=== PATIENT | female | born 1970 | race Caucasian/White ===

== ENCOUNTER 2021-12-12 07:58 | Emergency (ER) | payer BC ==
--- NOTE | 2021-12-12 08:19 | ERPHSYRPT ---
- History of Present Illness Time Seen by Provider: 12/12/21 08:14 Historian: patient, family Exam Limitations: no limitations Physician History: pt has had intermittent RUQ pain over the past month but awakened with sharp pain and vomiting tonight and came to ER. Is scheduled for US tomorrow to evaluate but unable to wait due to increased severity tonight/this am. Prior uterine ablation procedure. No vag discharge or other vag symptoms. Abd tender at RLQ radiating to RUQ. . Timing/Duration: day(s), intermittent Activities at Onset: none Quality: sharpness Abdominal Pain Onset Location: RUQ Pain Radiation: RUQ Severity of Pain-Max: moderate Severity of Pain-Current: moderate Modifying Factors: Improves With: nothing Associated Symptoms: nausea, vomiting Previous symptoms: same symptoms as today, recently seen, recently treated Allergies/Adverse Reactions: No Known Drug Allergies Allergy (Verified 12/12/21 08:15) - Review of Systems Constitutional: No Fever, No Chills Eyes: No Symptoms Ears, Nose, & Throat: No Symptoms Respiratory: No Cough, No Dyspnea Cardiac: No Chest Pain, No Edema, No Syncope Abdominal/Gastrointestinal: Abdominal Pain, Nausea, Vomiting, No Diarrhea Genitourinary Symptoms: No Dysuria Musculoskeletal: No Back Pain, No Neck Pain Skin: No Rash Neurological: No Dizziness, No Focal Weakness, No Sensory Changes Psychological: No Symptoms Endocrine: No Symptoms Hematologic/Lymphatic: No Symptoms Immunological/Allergic: No Symptoms All Other Systems: Reviewed and Negative - Past Medical History Pertinent Past Medical History: Yes GI Medical History: Other (recent concerns for GB Dx) Female Reproductive Disorders: Other (uterine thermoablation procedure) - Nursing Vital Signs Nursing Vital Signs: Initial Vital Signs Temperature 98 F 12/12/21 08:16 Pulse Rate 62 12/12/21 08:16 Respiratory Rate 20 12/12/21 08:16 Blood Pressure 159/97 12/12/21 08:16 O2 Sat by Pulse Oximetry 99 12/12/21 08:16 Pain Scale Pain Intensity 0 - Physical Exam General Appearance: no apparent distress, alert Eye Exam: PERRL/EOMI, eyes nml inspection Ears, Nose, Throat Exam: normal ENT inspection, pharynx normal, moist mucous membranes Neck Exam: normal inspection, non-tender, supple, full range of motion Respiratory Exam: normal breath sounds, lungs clear, No respiratory distress Cardiovascular Exam: regular rate/rhythm, normal heart sounds Gastrointestinal/Abdomen Exam: soft, tenderness, guarding (RUQ/RLQ), No mass Pelvic Exam: deferred Rectal Exam: deferred Back Exam: normal inspection, normal range of motion, No CVA tenderness, No vertebral tenderness Extremity Exam: normal inspection, normal range of motion, pelvis stable Neurologic Exam: alert, oriented x 3, cooperative, normal mood/affect, nml cerebellar function, sensation nml, No motor deficits Skin Exam: normal color, warm, dry SpO2 Interpretation: normal O2 Delivery: Room Air - Course Nursing assessment & vital signs reviewed: Yes EKG Interpreted by Me: Sinus [place], NORMAL AXIS, NORMAL INTERVALS, NORMAL QRS, Other (APCs) - CT Exams Abdomen/Pelvis CT Interpretation: Tele-radiologist Report, Normal Appendix, No appendicitis, Other (distended GB but no visible stones or blockages, and no cholecystitis as yet. ) Ordered Tests: Active Orders 24 hr Category Date Time Status EKG-ER Only STAT Care 12/12/21 08:21 Active IV Insertion STAT Care 12/12/21 08:21 Active NPO (ED) STAT Care 12/12/21 08:21 Active ABDOMEN AND PELVIS W/0 CONTRAS [CT] Stat Exams 12/12/21 08:21 Taken AMYLASE Stat Lab 12/12/21 08:00 Completed CBC W DIFF Stat Lab 12/12/21 08:00 Completed CMP Stat Lab 12/12/21 08:00 Completed CULTURE,URINE Stat Lab 12/12/21 09:44 Received HCG QUALITATIVE,SERUM Stat Lab 12/12/21 08:00 Completed LIPASE Stat Lab 12/12/21 08:00 Completed Lactic Acid Stat Lab 12/12/21 09:50 Completed TROPONIN Q4H Lab 12/12/21 08:00 Completed TROPONIN Q4H Lab 12/12/21 12:30 Ordered TROPONIN Q4H Lab 12/12/21 16:30 Ordered UA W/RFX CULTURE Stat Lab 12/12/21 09:44 Completed Medication Summary Discontinued Medications Generic Name Dose Route Start Last Admin Trade Name Freq PRN Reason Stop Dose Admin Famotidine 20 mg 12/12/21 08:21 12/12/21 08:32 Famotidine 20 Mg/1 Vial IV 12/12/21 08:22 20 mg STAT ONE Administration Famotidine Confirm 12/12/21 08:27 Famotidine 20 Mg/1 Vial Administered 12/12/21 08:28 Dose 20 mg IV .STK-MED ONE Sodium Chloride 1,000 mls @ 999 mls/hr 12/12/21 08:21 12/12/21 10:02 Sodium Chloride 0.9% 1000 Ml IV 12/12/21 09:21 Infused .Q1H1M STA Infusion Sodium Chloride Confirm 12/12/21 08:27 Sodium Chloride 0.9% 1000 Ml Administered 12/12/21 08:28 Dose 1,000 mls @ ud .ROUTE .STK-MED ONE Morphine Sulfate 4 mg 12/12/21 08:21 12/12/21 08:35 Morphine Sulfate 4 Mg/Ml Injection IV 12/12/21 08:22 4 mg STAT ONE Administration Morphine Sulfate Confirm 12/12/21 08:27 Morphine Sulfate 4 Mg/Ml Injection Administered 12/12/21 08:28 Dose 4 mg .ROUTE .STK-MED ONE Ondansetron HCl 4 mg 12/12/21 08:21 12/12/21 08:31 Ondansetron Hcl 4 Mg/2 Ml Vial IV 12/12/21 08:22 4 mg STAT ONE Administration Ondansetron HCl Confirm 12/12/21 08:27 Ondansetron Hcl 4 Mg/2 Ml Vial Administered 12/12/21 08:28 Dose 4 mg .ROUTE .STK-MED ONE Ondansetron HCl 4 mg 12/12/21 09:01 12/12/21 09:08 Ondansetron Hcl 4 Mg/2 Ml Vial IV 12/12/21 09:02 4 mg STAT ONE Administration Ondansetron HCl Confirm 12/12/21 09:08 Ondansetron Hcl 4 Mg/2 Ml Vial Administered 12/12/21 09:09 Dose 4 mg .ROUTE .STK-MED ONE Pantoprazole Sodium 40 mg 12/12/21 08:21 12/12/21 08:34 Pantoprazole 40 Mg Vial IV 12/12/21 08:22 40 mg STAT ONE Administration Pantoprazole Sodium Confirm 12/12/21 08:27 Pantoprazole 40 Mg Vial Administered 12/12/21 08:28 Dose 40 mg IV .STK-MED ONE Lab/Rad Data: Laboratory Result Diagrams 12/12/21 08:00 12/12/21 08:00 Laboratory Results 12/12/21 12/12/21 12/12/21 Range/Units 09:50 09:44 08:00 WBC (4.0-10.5) x10^3/uL RBC (4.1-5.4) x10^6/uL Hgb (12.0-16.0) g/dL Hct (35-47) % MCV (78-100) fL MCH (26-32) pg MCHC (32-36) g/dL RDW (11.5-14.0) % Plt Count (150-450) x10^3/uL MPV (7.5-11.0) fL Gran % (36.0-66.0) % Immature Gran % (Auto) (0.00-0.4) % Nucleat RBC Rel Count (0.00-0.1) % Eos # (Auto) (0-0.5) x10^3/uL Immature Gran # (Auto) (0.00-0.03) x10^3u/L Absolute Lymphs (auto) (1.0-4.6) x10^3/uL Absolute Monos (auto) (0.0-1.3) x10^3/uL Absolute Nucleated RBC (0.00-0.01) x10^3u/L Lymphocytes % (24.0-44.0) % Monocytes % (0.0-12.0) % Eosinophils % (0.00-5.0) % Basophils % (0.0-0.4) % Absolute Granulocytes (1.4-6.9) x10^3/uL Basophils # (0-0.4) x10^3/uL Sodium (137-145) mmol/L Potassium (3.5-5.1) mmol/L Chloride (98-107) mmol/L Carbon Dioxide (22-30) mmol/L Anion Gap (5-15) MEQ/L BUN (7-17) mg/dL Creatinine (0.52-1.04) mg/dL Estimated GFR ML/MIN Glucose (74-106) mg/dL Lactic Acid 1.3 (0.4-2.0) Calcium (8.4-10.2) mg/dL Total Bilirubin (0.2-1.3) mg/dL AST (14-36) U/L ALT (0-35) U/L Alkaline Phosphatase (38-126) U/L Troponin I (0.000-0.034) ng/mL Serum Total Protein (6.3-8.2) g/dL Albumin (3.5-5.0) g/dL Amylase (30-110) U/L Lipase (23-300) U/L Serum , Qual NEGATIVE (Negative) Urinalys Dipstick Clnc MAIN LAB Urine Color YELLOW (YELLOW) Urine Appearance SLIGHTLY (CLEAR) Urine pH 6.5 (5-6) Ur Specific [place] 1.015 (1.005-1.025) POC Urine Protein Conf 100 (Negative) Urine Ketones NEGATIVE (NEGATIVE) Urine Nitrite NEGATIVE (NEGATIVE) Urine Bilirubin NEGATIVE (NEGATIVE) Urine Urobilinogen 1 (0-1) mg/dL Urine Leukocytes TRACE (NEGATIVE) Urine WBC (Auto) 3-5 (0-5) /HPF Urine RBC (Auto) 0-2 (0-2) /HPF U Epithel Cells (Auto) FEW (FEW) /HPF Urine Bacteria (Auto) RARE (NEGATIVE) /HPF Urine RBC TRACE-INTACT (0-5) [place]/ul Ur Culture Indicated? YES Urine Glucose NEGATIVE (NEGATIVE) mg/dL 12/12/21 12/12/21 12/12/21 Range/Units 08:00 08:00 08:00 WBC 8.6 (4.0-10.5) x10^3/uL RBC 4.76 (4.1-5.4) x10^6/uL Hgb 14.7 (12.0-16.0) g/dL Hct 43.4 (35-47) % MCV 91.2 (78-100) fL MCH 30.9 (26-32) pg MCHC 33.9 (32-36) g/dL RDW 11.4 L (11.5-14.0) % Plt Count 274 (150-450) x10^3/uL MPV 10.0 (7.5-11.0) fL Gran % 81.2 H (36.0-66.0) % Immature Gran % (Auto) 0.3 (0.00-0.4) % Nucleat RBC Rel Count 0.0 (0.00-0.1) % Eos # (Auto) 0.02 (0-0.5) x10^3/uL Immature Gran # (Auto) 0.03 (0.00-0.03) x10^3u/L Absolute Lymphs (auto) 0.94 L (1.0-4.6) x10^3/uL Absolute Monos (auto) 0.61 (0.0-1.3) x10^3/uL Absolute Nucleated RBC 0.00 (0.00-0.01) x10^3u/L Lymphocytes % 10.9 L (24.0-44.0) % Monocytes % 7.1 (0.0-12.0) % Eosinophils % 0.2 (0.00-5.0) % Basophils % 0.3 (0.0-0.4) % Absolute Granulocytes 6.96 H (1.4-6.9) x10^3/uL Basophils # 0.03 (0-0.4) x10^3/uL Sodium 136 L (137-145) mmol/L Potassium 4.0 (3.5-5.1) mmol/L Chloride 102 (98-107) mmol/L Carbon Dioxide 26 (22-30) mmol/L Anion Gap 11.5 (5-15) MEQ/L BUN 10 (7-17) mg/dL Creatinine 0.66 (0.52-1.04) mg/dL Estimated GFR > 60.0 ML/MIN Glucose 124 H (74-106) mg/dL Lactic Acid (0.4-2.0) Calcium 8.8 (8.4-10.2) mg/dL Total Bilirubin 2.50 H (0.2-1.3) mg/dL AST 1074 H (14-36) U/L ALT 830 H (0-35) U/L Alkaline Phosphatase 160 H (38-126) U/L Troponin I < 0.012 (0.000-0.034) ng/mL Serum Total Protein 8.0 (6.3-8.2) g/dL Albumin 4.6 (3.5-5.0) g/dL Amylase 67 (30-110) U/L Lipase 97 (23-300) U/L Serum , Qual (Negative) Urinalys Dipstick Clnc Urine Color (YELLOW) Urine Appearance (CLEAR) Urine pH (5-6) Ur Specific Gilbert (1.005-1.025) POC Urine Protein Conf (Negative) Urine Ketones (NEGATIVE) Urine Nitrite (NEGATIVE) Urine Bilirubin (NEGATIVE) Urine Urobilinogen (0-1) mg/dL Urine Leukocytes (NEGATIVE) Urine WBC (Auto) (0-5) /HPF Urine RBC (Auto) (0-2) /HPF U Epithel Cells (Auto) (FEW) /HPF Urine Bacteria (Auto) (NEGATIVE) /HPF Urine RBC (0-5) [place]/ul Ur Culture Indicated? Urine Glucose (NEGATIVE) mg/dL - Progress Progress: improved, re-examined Progress Note: 12/12/21 08:20 discussed risk/benefit of CT and pt wishes to proceed. 12/12/21 09:28 doing better after pain med. 12/12/21 10:11 pain resolved after Tx. discussed with PT and and they would like to try as outpt and have US as scheduled tomorrow and see for potential surg referral and f/u liver enzymes and cyst. 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 Prescriptions: Hydrocodone/Acetaminophen [Hydrocodone-Acetamin 5-325 mg] 1 tab PO Q4HPRN PRN #7 tablet MDD 6 PRN Reason: Pain Ondansetron ODT 4 MG [Zofran Odt 4 mg] 4 mg PO Q6H PRN PRN #10 tablet PRN Reason: Nausea
[2021-12-12] MEDS ORDERED: MORPHINE SULFATE 4 MG INJ IV ONE (08:21)
[2021-12-12] MEDS ORDERED: PROTONIX 40 MG IV IV ONE ×2 (08:21→08:27)
[2021-12-12] MEDS ORDERED: Pepcid 20 MG VIAL IV ONE ×2 (08:21→08:27)
[2021-12-12] MEDS ORDERED: Sodium Chloride 0.9% 1000 ML 1,000 ML IV STA (08:21)
[2021-12-12] MEDS ORDERED: Zofran 4 MG/2 ML VIAL IV ONE ×2 (08:21→09:01)
[2021-12-12] MEDS ORDERED: Sodium Chloride 0.9% 1000 ML 1,000 ML ONE (08:27)
[2021-12-12] MEDS ORDERED: Zofran 4 MG/2 ML VIAL ONE ×2 (08:27→09:08)
[2021-12-12] MEDS ORDERED: MORPHINE SULFATE 4 MG INJ ONE (08:27)
[2021-12-12 08:34] LABS: Absolute Neutrophil Ct (ANC) 6.96 x10^3/uL (1.4-6.9); Basophil (Absolute #) 0.03 x10^3/uL (0-0.4); Eosinophil % 0.2 % (0.00-5.0); Eosinophil (Absolute #) 0.02 x10^3/uL (0-0.5); Hematocrit 43.4 % (35-47); Hemoglobin 14.7 g/dL (12.0-16.0); Lymphocyte (Absolute #) 0.94 x10^3/uL (1.0-4.6); Lymphocytes % 10.9 % (24.0-44.0); Mean Cell Volume 91.2 fL (78-100); Mean Corpuscular Hemoglobin 30.9 pg (26-32); Mean Corpuscular Hgb Concent. 33.9 g/dL (32-36); Monocyte (Absolute #) 0.61 x10^3/uL (0.0-1.3); Monocytes % 7.1 % (0.0-12.0); Neutrophil % 81.2 % (36.0-66.0); Platelet Count 274 x10^3/uL (150-450); Red Blood Count 4.76 x10^6/uL (4.1-5.4); Red Cell Distribution Width 11.4 % (11.5-14.0); White Blood Count 8.6 x10^3/uL (4.0-10.5)
[2021-12-12 08:47] LABS: ALBUMIN 4.6 g/dL (3.5-5.0); ALKALINE PHOSPHATASE 160 U/L (38-126); AMYLASE 67 U/L (30-110); ANION GAP 11.5 MEQ/L (5-15); BLOOD UREA NITROGEN 10 mg/dL (7-17); CHLORIDE 102 mmol/L (98-107); Calcium 8.8 mg/dL (8.4-10.2); Carbon Dioxide 26 mmol/L (22-30); Creatinine 1 0.66 mg/dL (0.52-1.04); EST GLOMERULAR FILTRATION RATE > 60.0 ML/MIN; Glucose 124 mg/dL (74-106); LIPASE 97 U/L (23-300); SODIUM 136 mmol/L (137-145)
[2021-12-12 08:55] LABS: SGPT/ALT 830 U/L (0-35)
[2021-12-12 09:01] LABS: SGOT/AST 1074 U/L (14-36)
[2021-12-12 09:56] LABS: Bacteria RARE /HPF (NEGATIVE); Epithelial Cells FEW /HPF (FEW); RBC 0-2 /HPF (0-2)
[2021-12-12 09:57] LABS: Appearance SLIGHTLY (CLEAR); Bilirubin NEGATIVE (NEGATIVE); Glucose NEGATIVE (NEGATIVE); Ketones NEGATIVE (NEGATIVE); Specific Gravity 1.015 (1.005-1.025)
[2021-12-12 09:58] LABS: Dipstick done @ ? MAIN LAB; Nitrite NEGATIVE (NEGATIVE); Ph 6.5 (5-6); Protein,Urine Dip 100 (Negative); RBC TRACE-INTACT Ery/ul (0-5); Urine Cultured Indicated? YES; Urobilinogen 1 mg/dL (0-1)
[2021-12-12 10:19] VITALS: BP 130/72; PULSE 56; O2SAT 96
--- NOTE | 2021-12-12 18:40 | XRAY ---
Indication: Right upper quadrant pain. Nausea and vomiting. Multiple contiguous axial images obtained through the abdomen and pelvis without contrast. Comparison: None Lung bases demonstrates minimal subsegmental atelectasis/scarring. No infiltrate or effusion. Heart not enlarged. Noncontrasted stomach and bowel loops appear nonobstructed with normal appendix. Mild distended gallbladder without gallstones or biliary distention. Left lobe liver demonstrates 2 cm cyst versus hemangioma. No free fluid/air. Remaining liver, gallbladder, pancreas, spleen, adrenal glands, kidneys, ureters, bladder, uterus, ureter, and aorta are unremarkable for noncontrast exam. Osseous structures intact. Impression: 1. Distended gallbladder better evaluated with sonogram if clinically warranted. 2. Incidental hepatic cyst versus hemangioma. Comment: Preliminary interpretation made by [facility]. No critical discrepancy.
== END 2021-12-12 10:52 | disposition home or self-care (01) ==
LOC: ED 07:58
DX: K80.50 Calculus of bile duct without cholangitis or cholecystitis without obstruction (principal); K82.9 Disease of gallbladder, unspecified; K76.89 Other specified diseases of liver; R74.8 Abnormal levels of other serum enzymes; R10.11 Right upper quadrant pain; R11.2 Nausea with vomiting, unspecified; Z79.891 Long term (current) use of opiate analgesic
CPT/HCPCS: 36000; 36415; 74176; 80053; 81015; 82150; 83605; 83690; 84484; 84703; 85025; 87086; 93005; 96374; 96375; 96376; 99284; J2270; J2405